=== PATIENT | female | born 1960 | race Caucasian/White ===

== ENCOUNTER → 2016-10-08 | Outpatient (CLI) | payer BC | LOC: GMAL 12:40 | PROVIDERS: ATTEND Family Medicine | DX: D51.3 Other dietary vitamin B12 deficiency anemia (principal); M10.09 Idiopathic gout, multiple sites; E55.9 Vitamin D deficiency, unspecified ==

== ENCOUNTER → 2016-12-17 | Outpatient (CLI) | payer BC | END | disposition home or self-care (01) | LOC: GMAL 10:37 | PROVIDERS: ATTEND Family Medicine | DX: S81.802D Unspecified open wound, left lower leg, subsequent encounter (principal) ==

== ENCOUNTER 2017-01-07 16:25 | Emergency (ER) | payer BC ==
[2017-01-07 16:39] VITALS: TEMP 97; O2SAT 98
[2017-01-07] MEDS ORDERED: predniSONE 20 MG TAB PO ONE (16:45)
[2017-01-07] MEDS ORDERED: diphenhydrAMINE HCL 50 MG/ML VIAL IM ONE (16:45)
--- NOTE | 2017-01-07 17:23 | ED.PDOC ---
History of Present Illness - General Chief Complaint: Allergic Reaction Stated Complaint: hives on body x 3 weeks worse today Time Seen by Provider: 01/07/17 16:44 Source: patient Exam Limitations: no limitations - History of Present Illness Initial Comments: the patient is a 56-year-old female presenting to emergency room due to hives. Apparently she has had an outbreak of hives for the last 3 weeks. She is uncertain what is triggering it. She received a steroid shot today and some form at her primary care doctor's office and was written for oral prednisone there as well. She has not yet taken the prednisone. She called her doctor's office back a few hours after receiving the shot to tell them that her hives are not improving so she was sent to the emergency room. She is having no difficulty breathing. She does indeed have hives over the face arms legs chest back abdomen I see no oral lesions. I see no swelling in the pharynx. She is having no difficulties breathing. The hives apparently do itch. They are large. The patient does already take Singulair on a daily basis. She has had this reaction in the past. I see no blisters. I see no pustules. I see no ulcers with the exception of the old ulcers. she is in no acute distress but is uncomfortable. Severity: moderate Improving Factors: nothing Worsening Factors: nothing Associated Symptoms: denies symptoms Allergies/Adverse Reactions: Allergies Latex Adverse Reaction (Intermediate, Verified 01/07/17 16:36) Other Pt states latex products make her itch. Home Medications: Ambulatory Orders Albuterol Inhaler [Proventil Hfa Inhaler] 2 puff INH Q4-6H PRN 06/07/14 Allopurinol [Zyloprim] 300 mg PO DAILY 06/07/14 Budesonide-Formoterol Fumarate [Symbicort] 2 puff IN BID 06/07/14 HYDROcodone 10MG/APAP 325MG [Williamson 10/325] 1 tab PO Q4HR 06/07/14 Meloxicam 15 mg PO DAILY 06/07/14 Montelukast Sodium [Singulair] 10 mg PO BEDTIME 06/07/14 Nebivolol HCl [Bystolic] 5 mg PO DAILY 06/07/14 Omeprazole 40 mg PO DAILY 06/07/14 Potassium Chloride [Potassium Chloride ER] 10 meq PO DAILY 09/15/14 Hydroxyzine HCl 25 mg PO Q6H PRN #30 tab 01/07/17 Review of Systems - Review of Systems Constitutional: States: no symptoms reported EENTM: States: other - her ears itch Respiratory: States: no symptoms reported Cardiology: States: no symptoms reported Gastrointestinal/Abdominal: States: no symptoms reported Genitourinary: States: no symptoms reported Musculoskeletal: States: no symptoms reported Skin: States: see HPI Neurological: States: no symptoms reported Endocrine: States: no symptoms reported All other Systems: No Change from Baseline Past Medical History (General) - Patient Medical History Hx Seizures: No Hx Stroke: No Hx Dementia: No Hx Asthma: Yes Hx of COPD: Yes Hx Cardiac Disorders: No Hx Congestive Heart Failure: No Hx Pacemaker: No Hx Hypertension: Yes Hx Thyroid Disease: No Hx Diabetes: No Hx Gastroesophageal Reflux: No Hx Renal Disease: No Hx Cancer: No Hx of HIV: No Hx Hepatitis C: No Hx MRSA: No Surgical History: Hysterectomy - Vaccination History Hx Tetanus, Diphtheria Vaccination: Yes Hx Influenza Vaccination: Yes Hx Pneumococcal Vaccination: Yes Immunizations Up to Date: Yes - Social History Hx Tobacco Use: Yes Hx Chewing Tobacco Use: No Hx Alcohol Use: No Hx Substance Use: No Hx Substance Use Treatment: No Hx Depression: No Feels Threatened In Home Enviroment: No Feels Threatened In a Relationship: No Hx Physical Abuse: No Hx Emotional Abuse: No Hx Suspected Abuse: No - Female History Patient is a Female of Child Bearing Age (10 -59 yrs old): No Patient : No Family Medical History - Family History Mother Family History: Unknown Living Status: Hx Family Cancer: Yes Physical Exam - Physical Exam General Appearance: Alert, Comfortable, No apparent distress Eye Exam: bilateral normal Ears, Nose, Throat: normal ENT inspection, normal pharynx Neck: non-tender, full range of motion, supple Respiratory: chest non-tender, lungs clear, normal breath sounds, no respiratory distress, no accessory muscle use Cardiovascular/Chest: normal peripheral pulses, regular rate, rhythm, no edema Peripheral Pulses: radial,right: 2+, radial,left: 2+, popliteal,left: 2+, dorsalis pedis,right: 2+ Gastrointestinal/Abdominal: non tender, soft - obese Rectal Exam: deferred Back Exam: normal inspection, no CVA tenderness, no vertebral tenderness Extremity: normal range of motion, non-tender, no pedal edema, no calf tenderness, normal capillary refill Neurologic: alert, normal mood/affect, oriented x 3 Skin Exam: normal color - with the exception of the hives Comments: Vital Signs - 24 hr 01/07/17 16:36 Temperature 97 F L Pulse Rate [ 103 H Left Apical] Respiratory 20 Rate Blood Pressure 138/65 [Left Radial Artery] O2 Sat by Pulse 98 Oximetry Progress - Progress Progress: 01/07/17 17:30 the patient is a 56-year-old female presenting due to hives. There is no evidence of anaphylaxis. trigger for the hives is not known at this time. No respiratory symptoms. The patient was given a dose of oral prednisone and a shot of IM Benadryl. She is being written for oral hydroxyzine for as needed use to help control the itching. She can additionally taking Zyrtec once daily for the next 2 weeks. She needs to continue her generic Singulair. She also needs to take the prednisone that was written by her primary care doctor earlier today, starting tomorrow. the patient can take a cool shower to help reduce the hives. Additionally she can use a topical hydrating lotion such as Cetaphil or Jergens to help reduce dry skin and irritation. ER warnings were given for any significant worsening. She needs to follow-up with her primary care doctor later this week. She can take photos of the hives with her digital phone at home for comparison for later in the week. Departure - Departure Clinical Impression: Urticaria Disposition: Discharge to Home or Self Care Condition: Fair Departure Forms: ED Discharge - Pt. Copy, Patient Portal Self Enrollment Instructions: DI for Hives Diet: regular diet Activity: increase activity as tolerated Referrals: Dwaine Grimaldo III, MD [Primary Care Provider] - 1-5 Days Prescriptions: Hydroxyzine HCl 25 mg PO Q6H PRN #30 tab PRN Reason: For Itching Home Medications: Ambulatory Orders Albuterol Inhaler [Proventil Hfa Inhaler] 2 puff INH Q4-6H PRN 06/07/14 Allopurinol [Zyloprim] 300 mg PO DAILY 06/07/14 Budesonide-Formoterol Fumarate [Symbicort] 2 puff IN BID 06/07/14 HYDROcodone 10MG/APAP 325MG [[place] 10/325] 1 tab PO Q4HR 06/07/14 Meloxicam 15 mg PO DAILY 06/07/14 Montelukast Sodium [Singulair] 10 mg PO BEDTIME 06/07/14 Nebivolol HCl [Bystolic] 5 mg PO DAILY 06/07/14 Omeprazole 40 mg PO DAILY 06/07/14 Potassium Chloride [Potassium Chloride ER] 10 meq PO DAILY 06/07/14 Hydroxyzine HCl 25 mg PO Q6H PRN #30 tab 01/07/17 Additional Instructions: the patient is a 56-year-old female presenting due to hives. There is no evidence of anaphylaxis. trigger for the hives is not known at this time. No respiratory symptoms. The patient was given a dose of oral prednisone and a shot of IM Benadryl. She is being written for oral hydroxyzine for as needed use to help control the itching. She can additionally taking Zyrtec once daily for the next 2 weeks. She needs to continue her generic Singulair. She also needs to take the prednisone that was written by her primary care doctor earlier today, starting tomorrow. the patient can take a cool shower to help reduce the hives. Additionally she can use a topical hydrating lotion such as Cetaphil or Jergens to help reduce dry skin and irritation. ER warnings were given for any significant worsening. She needs to follow-up with her primary care doctor later this week. She can take photos of the hives with her digital phone at home for comparison for later in the week.
[2017-01-07 17:42] VITALS: BP 132/86
== END 2017-01-07 17:42 | disposition home or self-care (01) ==
LOC: ER 16:25
DX: L50.9 Urticaria, unspecified (principal); J44.9 Chronic obstructive pulmonary disease, unspecified; I10 Essential (primary) hypertension; Z79.899 Other long term (current) drug therapy; Z87.891 Personal history of nicotine dependence; Z91.040 Latex allergy status

== ENCOUNTER → 2017-02-01 | Outpatient (CLI) | payer BC | END | disposition home or self-care (01) | LOC: GMAL 10:07 | PROVIDERS: ATTEND Family Medicine | DX: L03.119 Cellulitis of unspecified part of limb (principal) ==

== ENCOUNTER → 2017-02-22 | Outpatient (CLI) | payer BC | END | disposition home or self-care (01) | LOC: GMAL 10:35 | PROVIDERS: ATTEND Family Medicine | DX: L03.116 Cellulitis of left lower limb (principal) ==

== ENCOUNTER → 2017-03-22 | Outpatient (CLI) | payer BC | END | disposition home or self-care (01) | LOC: GMAL 10:04 | PROVIDERS: ATTEND Family Medicine | DX: L03.116 Cellulitis of left lower limb (principal) ==

== ENCOUNTER → 2017-04-05 | Outpatient (CLI) | payer BC | LOC: GMAL 10:50 | PROVIDERS: ATTEND Family Medicine | DX: L03.116 Cellulitis of left lower limb (principal) ==

== ENCOUNTER → 2017-04-19 | Outpatient (CLI) | payer BC, SELFPAY ==
--- NOTE | 2017-04-22 10:15 | RAD ---
EXAM DESCRIPTION: Hand,Left 3 Views CLINICAL HISTORY: 56 years Female, PAIN COMPARISON: None. FINDINGS: 3 views of the left hand show some linear lucency in the base of the distal phalanx of the thumb with extension to the interphalangeal joint surface, questionable acuity. There is no definite overlying soft tissue swelling. No additional fracture or malalignment is seen. The joint spaces are fairly well-maintained. No radiopaque foreign body or soft tissue gas. There is soft tissue swelling overlying the left ulna distally. IMPRESSION: Soft tissue swelling over the medial aspect of the left wrist without underlying ulnar or other wrist fracture. Linear lucency in the distal phalanx of the left thumb suggestive of fracture, probably not acute. Electronically signed by: Marcial Hernandez MD 04/22/2017 10:13 AM CDT Workstation: [id number]
--- NOTE | 2017-04-22 10:18 | RAD ---
EXAM DESCRIPTION: Hand,Right 3 Views CLINICAL HISTORY: 56 years Female, PAIN COMPARISON: None. FINDINGS: 3 views of the right hand show no acute fracture or malalignment. There is an old healed fracture involving the distal phalanx of the right third (middle) finger. The joint spaces are well-maintained. No radiopaque foreign body or soft tissue gas. IMPRESSION: Evidence of remote trauma, but no acute right hand abnormality. Electronically signed by: Marcial Hernandez MD 04/22/2017 10:16 AM CDT Workstation: [id number]
--- NOTE | 2017-04-22 10:19 | RAD ---
EXAM DESCRIPTION: Knee,Left Complete CLINICAL HISTORY: 56 years Female, PAIN COMPARISON: None. FINDINGS: 4 views of the left knee show no acute fracture or malalignment. There are advanced degenerative changes in the medial compartment including joint space narrowing with near [id number] alignment and osteophyte formation. Less advanced degenerative changes are noted in the lateral and patellofemoral compartments. No definite left knee joint effusion. IMPRESSION: Tricompartmental degenerative changes including advanced degenerative changes in the medial compartment. Electronically signed by: Marcial Hernandez MD 04/22/2017 10:17 AM CDT Workstation: -[id number]
--- NOTE | 2017-04-22 10:21 | RAD ---
EXAM DESCRIPTION: Pelvis CLINICAL HISTORY: 56 years Female, PAIN COMPARISON: None. FINDINGS: Single AP view the pelvis shows no displaced pelvic fracture. Mild bilateral hip joint space narrowing is noted. There is no lytic or sclerotic bone lesion. No concerning soft tissue abnormality. IMPRESSION: Mild degenerative changes in both hips, otherwise unremarkable exam. Electronically signed by: Marcial Hernandez MD 04/22/2017 10:20 AM CDT Workstation: [id number]
--- NOTE | 2017-04-22 10:21 | RAD ---
EXAM DESCRIPTION: Knee,Right Complete CLINICAL HISTORY: 56 years Female, PAIN COMPARISON: None. FINDINGS: 4 views of the right knee show no acute fracture or malalignment. There are advanced degenerative changes in the medial compartment including severe joint space narrowing with near [id number] alignment. Less advanced degenerative changes are noted in the lateral and patellofemoral compartments. There is a small right knee joint effusion. IMPRESSION: Tricompartmental degenerative changes including advanced degenerative changes in the medial compartment. Small right knee joint effusion. Electronically signed by: Marcial Hernandez MD 04/22/2017 10:19 AM CDT Workstation: [email or web address]
== END | disposition home or self-care (01) ==
LOC: RAD 09:03
PROVIDERS: ATTEND Orthopaedic Surgery
DX: M25.561 Pain in right knee (principal); M25.562 Pain in left knee; M25.551 Pain in right hip; M25.552 Pain in left hip; M79.641 Pain in right hand

== ENCOUNTER → 2017-04-30 | Outpatient (CLI) | payer BC | END | disposition home or self-care (01) | LOC: GMAL 16:38 | PROVIDERS: ATTEND Family Medicine | DX: I83.028 Varicose veins of left lower extremity with ulcer other part of lower leg (principal) ==

== ENCOUNTER → 2017-05-13 | Outpatient (CLI) | payer BC | END | disposition home or self-care (01) | LOC: GMAL 10:43 | PROVIDERS: ATTEND Family Medicine | DX: I83.028 Varicose veins of left lower extremity with ulcer other part of lower leg (principal) ==

== ENCOUNTER → 2017-05-21 | Outpatient (CLI) | payer BC | END | disposition home or self-care (01) | LOC: LAB.O 08:06 | PROVIDERS: ATTEND Family Medicine | DX: M06.9 Rheumatoid arthritis, unspecified (principal); M25.50 Pain in unspecified joint ==

== ENCOUNTER → 2017-06-07 | Outpatient (CLI) | payer BC | END | disposition home or self-care (01) | LOC: LAB.O 07:53 | PROVIDERS: ATTEND Emergency Medicine | DX: I87.311 Chronic venous hypertension (idiopathic) with ulcer of right lower extremity (principal) ==

== ENCOUNTER → 2017-06-26 | Outpatient (CLI) | payer BC | END | disposition home or self-care (01) | LOC: GMAL 16:26 | PROVIDERS: ATTEND Family Medicine | DX: M10.09 Idiopathic gout, multiple sites (principal) ==

== ENCOUNTER → 2017-08-27 | Outpatient (CLI) | payer BC | END | disposition home or self-care (01) | LOC: GMAL 10:27 | PROVIDERS: ATTEND Family Medicine | DX: I83.028 Varicose veins of left lower extremity with ulcer other part of lower leg (principal) ==

== ENCOUNTER → 2018-03-12 | Outpatient (CLI) | payer OTHER | LOC: GMAL 14:38 | PROVIDERS: ATTEND Family Medicine | DX: I83.028 Varicose veins of left lower extremity with ulcer other part of lower leg (principal) ==

== ENCOUNTER → 2019-02-25 | Outpatient (CLI) | payer BC | LOC: LAB.O 12:39 | PROVIDERS: ATTEND Nurse Practitioner | DX: M06.9 Rheumatoid arthritis, unspecified (principal) ==

== ENCOUNTER → 2019-03-02 | Outpatient (CLI) | payer BC | LOC: GMAL 10:59 | PROVIDERS: ATTEND Family Medicine | DX: Z00.00 Encounter for general adult medical examination without abnormal findings (principal) ==

== ENCOUNTER → 2019-06-08 | Outpatient (CLI) | payer BC | LOC: LAB.O 09:17 | PROVIDERS: ATTEND Family Medicine | DX: I10 Essential (primary) hypertension (principal); E87.6 Hypokalemia; E26.9 Hyperaldosteronism, unspecified; E83.42 Hypomagnesemia ==

== ENCOUNTER → 2019-07-29 | Outpatient (CLI) | payer BC | LOC: LAB.O 12:01 | PROVIDERS: ATTEND Nurse Practitioner | DX: R94.5 Abnormal results of liver function studies (principal); M06.9 Rheumatoid arthritis, unspecified ==

== ENCOUNTER → 2019-10-20 | Outpatient (CLI) | payer BC ==
--- NOTE | 2019-10-21 17:18 | MAM ---
EXAM DESCRIPTION: 3D Screening BILATERAL : Digital Mammography. CLINICAL HISTORY: 59 years Female ANNUAL SCREENING . No complaints or personal history of breast cancer. Female sibling with breast cancer age 57. No remote family history of breast cancer. Menarche age 15. Childbirth age 17. Menopause age unknown. No HRT. Lifetime risk of developing breast cancer (Tyrer-Cuzick model)(%): 14.2. COMPARISON: 2-D digital screening bilateral mammography June 2016.. TECHNIQUE: Bilateral CC and MLO projection full-field images, 2-D mammographic technique. Bilateral digital 2-D full-field MLO images. Tomosynthesis was not performed due to size of the bilateral breasts. CAD available for 2-D images. FINDINGS: The breast parenchymal density pattern is: Almost entirely fatty. No skin thickening or nipple retraction. Bilateral axillary lymph nodes. Intramammary lymph node lateral left breast. Bilateral solitary microcalcifications. No new focal, stellate mass or density, focal asymmetry , and no suspicious microcalcifications bilaterally Stable mammograms compared to prior study. IMPRESSION: Benign exam. BIRAD CATEGORY: 2 BENIGN FINDINGS. RECOMMENDATIONS: FOLLOW UP: Routine digital bilateral mammographic screening, one year interval from September 2019. Written communication explaining the IMPRESSION and follow-up, will be mailed to the patient and referring health care provider. According to the [employer], yearly mammograms are recommended starting at age 40 and continuing as long as a woman is in good health. Any breast change noted on a breast self-exam should be reported promptly to the patient's healthcare provider. Breast MRI is recommended for women with an approximately 20-25% or greater lifetime risk of breast cancer, including women with a strong family history of breast or ovarian cancer and women who have been treated for Hodgkin's disease. A negative mammographic report should not delay tissue diagnosis in patients with significant clinical history or physical findings. Extremely dense breast tissue limits the sensitivity of digital mammography. Electronically signed by: Sunil Oneill MD 10/21/2019 5:16 PM CLERICAL SUPPORT SPECIALIST
== END ==
LOC: MAMMO 09:53
PROVIDERS: ATTEND Family Medicine
DX: Z12.31 Encounter for screening mammogram for malignant neoplasm of breast (principal)

== ENCOUNTER → 2020-03-28 | Outpatient (CLI) | payer BC | LOC: LAB.O 12:12 | PROVIDERS: ATTEND Nurse Practitioner | DX: M06.9 Rheumatoid arthritis, unspecified (principal) ==

== ENCOUNTER → 2020-04-14 | Outpatient (CLI) | payer BC | LOC: GMAL 15:27 | PROVIDERS: ATTEND Family Medicine | DX: D51.3 Other dietary vitamin B12 deficiency anemia (principal); E55.9 Vitamin D deficiency, unspecified ==

== ENCOUNTER → 2020-07-18 | Outpatient (CLI) | payer BC | LOC: GMAL 14:10 | PROVIDERS: ATTEND Family Medicine | DX: M10.09 Idiopathic gout, multiple sites (principal); Z79.899 Other long term (current) drug therapy ==

== ENCOUNTER → 2020-08-01 | Outpatient (CLI) | payer BC | LOC: LAB.O 08:30 | PROVIDERS: ATTEND Internal Medicine | DX: M06.9 Rheumatoid arthritis, unspecified (principal) ==

== ENCOUNTER 2020-09-19 17:01 | Emergency (ER) | payer BC ==
[2020-09-19] MEDS ORDERED: ONDANSETRON ODT 8 MG TAB SL ONE (17:26)
[2020-09-19] MEDS ORDERED: SUCRALFATE 1 GM/10 ML 1 GM UD PO ONE (17:26)
[2020-09-19] MEDS ORDERED: ALUM & MAG HYDROX-SIMETHICONE 30 ML, LIDOCAINE VISCOUS 2% 15 ML PO ONE ×2 (17:26)
[2020-09-19 17:32] VITALS: TEMP 97.8
--- NOTE | 2020-09-19 17:59 | RAD ---
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 FINDINGS: 3 X-ray views of the of the chest and abdomen (supine and erect) were performed. No prior films are available this time for comparison. The cardia mediastinal silhouette demonstrate to be unremarkable. The heart is not enlarged. The thoracic aorta is mildly tortuous. Minimal linear densities within the lung bases correspond to minimal atelectasis. There is no evidence for pneumothorax. The bony structures demonstrate to be unremarkable. The study is somewhat compromised due to large patient body habitus and obtaining imaging and 4 quadrant with slight underpenetration of the x-ray being from large patient body habitus. The gas pattern is nondiagnostic. No signs of ileus or obstruction. No free air under the diaphragm is noted. No abnormal calcifications are seen. The bone windows demonstrate to be unremarkable. IMPRESSION: NO ACUTE CARDIOPULMONARY DISEASE IS SEEN. NONDIAGNOSTIC GAS PATTERN. NO SIGNS OF OBSTRUCTION OR ILEUS. Electronically signed by: Dwaine Shi MD 09/19/2020 5:57 PM PARKING WORKER
[2020-09-19] MEDS ORDERED: cefTRIAXone SODIUM 1 GM VIAL IM ONE (18:13)
[2020-09-19] MEDS ORDERED: IPRATROPIUM/ALBUTEROL 3 ML VIAL NEB ONE (18:17)
[2020-09-19] MEDS ORDERED: LIDOCAINE 1% 2 ML VIAL INJ ONE (18:30)
[2020-09-19 18:42] VITALS: O2SAT 90
--- NOTE | 2020-09-19 19:27 | ED.PDOC ---
History of Present Illness - General Chief Complaint: GI Problem Stated Complaint: heartburn, mid upper abdominal pain Time Seen by Provider: 09/19/20 17:05 Source: patient Exam Limitations: no limitations - History of Present Illness Initial Comments: The patient is a 60-year-old female presented emergency room secondary to essentially reflux symptoms. She is actually been tasting the acid wash back up in the back of her mouth. The patient is morbidly obese and takes a significant amount of anti-inflammatories for her arthritis. The patient does have COPD and asthma but has not been using her breathing treatments. She has oxygen saturations that ranged from 85 to 95% on room air. She reports she is not having any more difficulty breathing now than she normally has. No productive cough. No fever. No real chest pain otherwise. No syncope or near syncope. No palpitations. The patient does have some epigastric and left upper quadrant discomfort to palpation. Questionable history of stomach ulcers in the past. Timing/Duration: 1 week Severity: moderate Improving Factors: nothing Worsening Factors: eating Associated Symptoms: loss of appetite, malaise, nausea/vomiting Allergies/Adverse Reactions: Allergies Codeine Allergy (Verified 09/19/20 17:32) Latex Adverse Reaction (Intermediate, Verified 01/07/17 16:36) Other Pt states latex products make her itch. Home Medications: Ambulatory Orders Albuterol Inhaler [Proventil Hfa Inhaler] 2 puff INH Q4-6H PRN 06/07/14 Allopurinol [Zyloprim] 300 mg PO DAILY 06/07/14 Budesonide-Formoterol Fumarate [Symbicort] 2 puff IN BID 06/07/14 HYDROcodone 10MG/APAP 325MG [[place] 10/325] 1 tab PO Q4HR 06/07/14 Meloxicam 15 mg PO DAILY 06/07/14 Montelukast [Singulair] 10 mg PO BEDTIME 06/07/14 Nebivolol HCl [Bystolic] 5 mg PO DAILY 06/07/14 Omeprazole 40 mg PO DAILY 06/07/14 Potassium Chloride [Potassium Chloride ER] 10 meq PO DAILY 06/07/14 Hydroxyzine HCl 25 mg PO Q6H PRN #30 tab 01/07/17 Famotidine [Pepcid Tab] 20 mg PO BID #30 tab 09/19/20 Ipratropium/Albuterol [Duoneb] 3 ml INH Q6HR PRN #1 pack 09/19/20 Ondansetron Odt [Zofran ODT] 4 mg PO Q8HR PRN #5 tab 09/19/20 Sucralfate Tab [Carafate Tab] 1 gm PO QID #120 tab 09/19/20 levoFLOXacin [Levaquin] 500 mg PO DAILY #5 tab 09/19/20 predniSONE [Prednisone] 20 mg PO DAILY #7 tab 09/19/20 Review of Systems - Review of Systems Constitutional: States: malaise EENTM: States: no symptoms reported Respiratory: States: wheezing Cardiology: States: no symptoms reported Gastrointestinal/Abdominal: States: abdominal pain, nausea Genitourinary: States: no symptoms reported Musculoskeletal: States: no symptoms reported Skin: States: no symptoms reported Neurological: States: no symptoms reported Endocrine: States: no symptoms reported All other Systems: No Change from Baseline Past Medical History (General) - Patient Medical History Hx Seizures: No Hx Stroke: No Hx Dementia: No Hx Asthma: Yes Hx of COPD: Yes Hx Cardiac Disorders: No Hx Congestive Heart Failure: No Hx Pacemaker: No Hx Hypertension: Yes Hx Thyroid Disease: No Hx Diabetes: No Hx Gastroesophageal Reflux: No Hx Renal Disease: No Hx Cancer: No Hx of HIV: No Hx Hepatitis C: No Hx MRSA: No - Vaccination History Hx Tetanus, Diphtheria Vaccination: Yes Hx Influenza Vaccination: Yes Hx Pneumococcal Vaccination: Yes - Social History Hx Tobacco Use: Yes Hx Chewing Tobacco Use: No Hx Alcohol Use: No Hx Substance Use: No Hx Substance Use Treatment: No Hx Depression: No Hx Physical Abuse: No Hx Emotional Abuse: No Hx Suspected Abuse: No - Activities of Daily Living Hospice Agency (if applicable):: None - Female History Patient is a Female of Child Bearing Age (10 -59 yrs old): No Patient : No Family Medical History - Family History Mother Family History: Unknown Living Status: Hx Family Cancer: Yes Physical Exam - Physical Exam General Appearance: Alert, Comfortable, No apparent distress Eye Exam: bilateral normal Ears, Nose, Throat: hearing grossly normal, normal pharynx Neck: non-tender, supple Respiratory: no respiratory distress, no accessory muscle use, wheezing Cardiovascular/Chest: normal peripheral pulses, no edema, other - Regular rate and rhythm Peripheral Pulses: radial,right: 2+, radial,left: 2+ Gastrointestinal/Abdominal: soft, other - Epigastric to left upper quadrant discomfort to palpation. No rebound or peritoneal signs. No guarding. No obvious palpable mass. Rectal Exam: deferred Back Exam: no CVA tenderness, no vertebral tenderness Extremity: normal range of motion, non-tender, normal inspection, no pedal edema, normal capillary refill Neurologic: stove mounter II-XII nml as tested, alert, normal mood/affect, oriented x 3 Skin Exam: normal color Comments: Vital Signs - 24 hr 09/19/20 09/19/20 09/19/20 17:10 17:30 18:30 Temperature 97.8 F Pulse Rate 89 Pulse Rate [ 99 H 99 H pulse ox] Respiratory 22 22 18 Rate Blood Pressure 182/100 [Left Arm] O2 Sat by Pulse 93 L 90 L Oximetry Progress - Progress Progress: 09/19/20 19:29 the patient is a 60-year-old female presented emergency room secondary to reflux issues and gastritis issues. These are likely being made worse by the anti-inflammatories that she is taking for her arthritis. The patient is going to be written for Carafate and famotidine for the next month. She does need to maintain a bland diet. She will also be written for some Zofran for as needed use for nausea vomiting. Additionally the patient does have some significant COPD and she does have some borderline hypoxia due to that. This is likely longstanding so we will attempt to manage the patient as an outpatient for now. She will be written for more DuoNeb nebulizer treatments to be used every 4-6 hours as needed. I am also going to write the patient for some prednisone for the next week. She obviously needs to not smoke. I do want her to follow back up with her primary care doctor in 2 to 3 days for a repeat evaluation to make sure she is holding her oxygen saturations okay. I highly suspect that the patient is going to end up requiring at least nighttime oxygen in the near future. Weight loss over the near future would also be beneficial for the patient. She tested negative for coronavirus here today. ER warnings are given for any worsening. [facility] [id number] - Results/Orders Results/Orders: EKG shows normal sinus rhythm at 97 bpm. Mild right axis deviation. Normal R wave progression. No ST segment changes consistent with ischemia. Normal QT interval. Acute abdominal series appears benign. Rapid coronavirus test is negative. Laboratory Tests 09/19/20 09/19/20 09/19/20 17:26 17:35 17:35 WBC 6.8 RBC 4.48 Hgb 13.6 Hct 40.7 MCV 90.6 MCH 30.4 MCHC 33.6 RDW 15.2 H Plt Count 177 MPV 7.8 Absolute Neuts (auto) 3.90 Absolute Lymphs (auto) 1.70 Absolute Monos (auto) 0.70 Absolute Eos (auto) 0.30 Absolute Basos (auto) 0.20 H Neutrophils % 58.1 Lymphocytes % 24.8 Monocytes % 10.6 H Eosinophils % 4.1 Basophils % 2.4 H PT INR PTT (SP) Sodium 139 Potassium 3.7 Chloride 99 L Carbon Dioxide 29 Anion Gap 14.7 BUN 12 Creatinine 0.69 BUN/Creatinine Ratio 17.4 Random Glucose 104 Serum Osmolality 277.6 Calcium 8.5 Magnesium 2.0 Total Bilirubin 1.0 AST 27 ALT 40 Alkaline Phosphatase 84 Creatine Kinase 127 CK-MB (CK-2) 2.9 CK-MB (CK-2) % Not Reportable Troponin I < 0.02 B-Natriuretic Peptide < 15.0 Serum Total Protein 5.5 L Albumin 4.4 Globulin 1.1 L Albumin/Globulin Ratio 4.0 H Amylase 48 Lipase 40 TSH 5.72 H Urine Color Yellow Urine Appearance Cloudy Urine pH 6.0 Ur Specific [place] 1.025 Urine Protein Negative Urine Glucose (UA) Negative Urine Ketones Negative Urine Blood Moderate H Urine Nitrite Negative Urine Bilirubin Negative Urine Urobilinogen 0.2 Ur Leukocyte Esterase Small H Urine RBC 10-20 H Urine WBC 3-5 H Ur Epithelial Cells 5-10 Amorphous Sediment 1+ Urine Bacteria 1+ Urine Mucus Large 09/19/20 17:35 WBC RBC Hgb Hct MCV MCH MCHC RDW Plt Count MPV Absolute Neuts (auto) Absolute Lymphs (auto) Absolute Monos (auto) Absolute Eos (auto) Absolute Basos (auto) Neutrophils % Lymphocytes % Monocytes % Eosinophils % Basophils % PT 10.5 INR 1.06 PTT (SP) 22.3 Sodium Potassium Chloride Carbon Dioxide Anion Gap BUN Creatinine BUN/Creatinine Ratio Random Glucose Serum Osmolality Calcium Magnesium Total Bilirubin AST ALT Alkaline Phosphatase Creatine Kinase CK-MB (CK-2) CK-MB (CK-2) % Troponin I B-Natriuretic Peptide Serum Total Protein Albumin Globulin Albumin/Globulin Ratio Amylase Lipase TSH Urine Color Urine Appearance Urine pH Ur Specific [place] Urine Protein Urine Glucose (UA) Urine Ketones Urine Blood Urine Nitrite Urine Bilirubin Urine Urobilinogen Ur Leukocyte Esterase Urine RBC Urine WBC Ur Epithelial Cells Amorphous Sediment Urine Bacteria Urine Mucus Departure - Departure Clinical Impression: COPD exacerbation, Cystitis Gastroesophageal reflux disease Qualifiers: Esophagitis presence: with esophagitis Esophagitis bleeding: without hemorrhage Qualified Code(s): K21.00 - Gastro-esophageal reflux disease with esophagitis, without bleeding Disposition: Discharge to Home or Self Care Condition: Fair Departure Forms: ED Discharge - Pt. Copy, Patient Portal Self Enrollment Instructions: Acid Reflux and GERD in Adults (DC), Exacerbation of COPD Diet: bland diet Activity: increase activity as tolerated Referrals: Dwaine Grimaldo III, MD [Primary Care Provider] - 1-2 Weeks Prescriptions: Ipratropium/Albuterol [Duoneb] 3 ml INH Q6HR PRN #1 pack PRN Reason: Shortness Of Breath Ondansetron Odt [Zofran ODT] 4 mg PO Q8HR PRN #5 tab PRN Reason: Nausea--Moderate Sucralfate Tab [Carafate Tab] 1 gm PO QID #120 tab levoFLOXacin [Levaquin] 500 mg PO DAILY #5 tab Famotidine [Pepcid Tab] 20 mg PO BID #30 tab predniSONE [Prednisone] 20 mg PO DAILY #7 tab Home Medications: Ambulatory Orders Albuterol Inhaler [Proventil Hfa Inhaler] 2 puff INH Q4-6H PRN 06/07/14 Allopurinol [Zyloprim] 300 mg PO DAILY 06/07/14 Budesonide-Formoterol Fumarate [Symbicort] 2 puff IN BID 06/07/14 HYDROcodone 10MG/APAP 325MG [[place] 10/325] 1 tab PO Q4HR 06/07/14 Meloxicam 15 mg PO DAILY 06/07/14 Montelukast [Singulair] 10 mg PO BEDTIME 06/07/14 Nebivolol HCl [Bystolic] 5 mg PO DAILY 06/07/14 Omeprazole 40 mg PO DAILY 06/07/14 Potassium Chloride [Potassium Chloride ER] 10 meq PO DAILY 06/07/14 Hydroxyzine HCl 25 mg PO Q6H PRN #30 tab 01/07/17 Famotidine [Pepcid Tab] 20 mg PO BID #30 tab 09/19/20 Ipratropium/Albuterol [Duoneb] 3 ml INH Q6HR PRN #1 pack 09/19/20 Ondansetron Odt [Zofran ODT] 4 mg PO Q8HR PRN #5 tab 09/19/20 Sucralfate Tab [Carafate Tab] 1 gm PO QID #120 tab 09/19/20 levoFLOXacin [Levaquin] 500 mg PO DAILY #5 tab 09/19/20 predniSONE [Prednisone] 20 mg PO DAILY #7 tab 09/19/20 Additional Instructions: the patient is a 60-year-old female presented emergency room secondary to reflux issues and gastritis issues. These are likely being made worse by the anti-inflammatories that she is taking for her arthritis. The patient is going to be written for Carafate and famotidine for the next month. She does need to maintain a bland diet. She will also be written for some Zofran for as needed use for nausea vomiting. Additionally the patient does have some significant COPD and she does have some borderline hypoxia due to that. This is likely longstanding so we will attempt to manage the patient as an outpatient for now. She will be written for more DuoNeb nebulizer treatments to be used every 4-6 hours as needed. I am also going to write the patient for some prednisone for the next week. She obviously needs to not smoke. I do want her to follow back up with her primary care doctor in 2 to 3 days for a repeat evaluation to make sure she is holding her oxygen saturations okay. I highly suspect that the patient is going to end up requiring at least nighttime oxygen in the near future. Weight loss over the near future would also be beneficial for the patient. She tested negative for coronavirus here today. ER warnings are given for any worsening.
[2020-09-19 19:48] VITALS: BP 159/83
== END 2020-09-19 19:49 | disposition home or self-care (01) ==
LOC: ER 17:01
DX: K21.00 Gastro-esophageal reflux disease with esophagitis, without bleeding (principal); J44.1 Chronic obstructive pulmonary disease with (acute) exacerbation; N30.90 Cystitis, unspecified without hematuria; R10.13 Epigastric pain; E66.01 Morbid (severe) obesity due to excess calories; I10 Essential (primary) hypertension; Z20.828 Contact with and (suspected) exposure to other viral communicable diseases; Z79.899 Other long term (current) drug therapy; Z88.5 Allergy status to narcotic agent; Z91.040 Latex allergy status; Z87.891 Personal history of nicotine dependence; Z68.44 Body mass index [BMI] 60.0-69.9, adult
CPT/HCPCS: 36415; 74019; 80053; 81001; 82150; 82550; 82553; 83690; 83735; 83880; 84443; 84484; 85025; 85610; 85730; 87086; 87635; 93005; 94640; J0696; J7620

== ENCOUNTER → 2020-10-10 | Outpatient (CLI) | payer BC | LOC: LAB.O 11:27 | PROVIDERS: ATTEND Family Medicine | DX: Z79.899 Other long term (current) drug therapy (principal); M10.09 Idiopathic gout, multiple sites; M06.9 Rheumatoid arthritis, unspecified ==